=== PATIENT | female | born 1950 | race Caucasian/White ===

== ENCOUNTER 2019-02-12 18:41 | Emergency (ER) | payer MEDICARE, MEDICAID ==
[~2019-02-12] VITALS: Ht 152 cm; Wt 57.0 kg
[~2019-02-12 18:41] MED LIST: BUDE6HFA INH; CLON1TAB3 PO; DESV50TA PO; ESTR0.62 PO; FLUT16SP22 NS; MULT-1018 PO; PRISTIQ; RT-ALBUINH IH; TRAZ-144 PO
--- NOTE | 2019-02-12 19:08 | ED Integumentary General ---
General Chief Complaint: Skin/Wound Problems Stated Complaint: POST OP SITE BLEEDING - STOMACH Nursing Triage Note: DC FROM [place] TODAY AFTER HAVING A LAP SIGMOID COLON REPAIR AND LAP APPY ON SATURDAY. STATES SHE PICKED UP HER PURSE AND THINKS SHE MIGHT HAVE OPENED A STITCH DUE TO THE AREA BLEEDING WHERE A DRAIN WAS. Source: patient Exam Limitations: no limitations History of Present Illness Date Seen by Provider: Feb 12, 2019 Time Seen by Provider: 19:04 Initial Comments To ER with reports of bleeding at the right lower abdominal incision, the site of her former drain. She had laparoscopic sigmoid colon resection and appendectomy at [facility] on Saturday of this week. She was just discharged in route back to her home and [facility] when she picked up her purse and noticed a tearing sensation in the right lower abdomen at the site of the drain or it had been removed and a bit of bruising onto the gauze dressing. This concerned her so she stopped here on the way home. Timing/Duration: just prior to arrival Severity: moderate Location: torso Associated Symptoms: denies symptoms Allergies and Home Medications Allergies Coded Allergies: mirtazapine (Verified Allergy, Severe, INCREASED HEART RATE, 02/12/19) quetiapine (Verified Allergy, Severe, INCREASED HEART RATE, 02/12/19) ziprasidone (Verified Allergy, Severe, INCREASE HEART RATE, 02/12/19) aspirin (Verified Allergy, Mild, NAUSEA, 07/01/14) codeine (Verified Adverse Reaction, Unknown, NAUSEA/HALLUCINATION, 07/01/14) risperidone (Unverified Adverse Reaction, Unknown, 07/01/14) Home Medications Albuterol Sulfate 1 Puff Puff, 2 PUFF IH Q4H PRN for SHORTNESS OF BREATH, (Reported) Budesonide/Formoterol Fumarate 1 Inhaler Aero, 2 PUFF INH BID, (Reported) Clonazepam 1 Mg Tablet, 1 MG PO TID PRN for ANXIETY, (Reported) Desvenlafaxine Succinate 50 Mg Tab.sr.24h, 50 MG PO DAILY, (Reported) Estrogens Conjugated 0.625 Mg Tab, 0.625 MG PO DAILY, (Reported) Fluticasone Propionate 16 Gm Naspr, 1 SPRAY NS BID, (Reported) Multivits-Min/Folic Acid/Biot 1 Each Tablet, 1 TAB PO DAILY, (Reported) Trazodone Hcl 50 Mg Tablet, 50-100 MG PO HS, (Reported) Patient Home Medication List Home Medication List Reviewed: Yes Review of Systems Review of Systems Constitutional: see HPI EENTM: see HPI Respiratory: no symptoms reported Cardiovascular: no symptoms reported Genitourinary: no symptoms reported Musculoskeletal: see HPI Skin: see HPI Psychiatric/Neurological: No Symptoms Reported Endocrine: No Symptoms Reported Past Grxlfil-Wplomr-Byjeaz Hx Patient Social History Recent Foreign Travel: No Contact w/Someone Who Travel: No Recent Infectious Disease Expo: No Immunizations Up To Date Tetanus Booster (TDap): Less than 5yrs Date of Pneumonia Vaccine: Feb 17, 2013 Date of Influenza Vaccine: Feb 17, 2014 Seasonal Allergies Seasonal Allergies: Yes Past Medical History Adenoidectomy, Bladder Surgery, Hysterectomy, Tonsillectomy Asthma Reproductive Disorders: No Female Reproductive Disorders: Denies Sexually Transmitted Disease: No HIV/AIDS: No Irritable Bowel Anxiety, PTSD Recent Skin Changes Adverse Reaction/Blood Tranf: No Family Medical History Completed stroke G8 BROTHER (HAD A CLOT AFTER SHOULDER SURGERY, THEN HAD STROKE) FH: kidney disease 19 MOTHER ( AT 42) FH: leukemia 19 FATHER ( AT 39) Respiratory disorder G8 BROTHER (COPD) G8 BROTHER (EMPHYSEMA) Physical Exam Vital Signs Vital Signs - First Documented 02/12/19 18:43 Temp 37.0 Pulse 81 Resp 16 B/P (MAP) 176/73 (107) Pulse Ox 97 O2 Delivery Room Air Capillary Refill : Less Than 3 Seconds General Appearance: WD/WN, no apparent distress Respiratory: no respiratory distress, no accessory muscle use Gastrointestinal: normal bowel sounds, tenderness (tenderness to palpation, the small less than or equal to 1 cm incision in the right lower abdomen where the drain was at his clean and dry. I'm not able to spread to support any more than about a millimeter or 2 deep. When I press around this I'm unable to express any blood or serous fluid. There is no surrounding induration and no erythema and no ecchymosis. A new dressing was replaced and the patient was reassured.) Neurologic/Psychiatric: alert, normal mood/affect, oriented x 3 Skin: normal color, warm/dry Progress/Results/Core Measures Results/Orders Vital Signs/I&O 02/12/19 18:43 Temp 37.0 Pulse 81 Resp 16 B/P (MAP) 176/73 (107) Pulse Ox 97 O2 Delivery Room Air Blood Pressure Mean: 107 Departure Impression Primary Impression: Postoperative bleeding from incision Disposition: 01 HOME, SELF-CARE Condition: Stable Departure-Patient Inst. Decision time for Depature: 19:07 Referrals: NO,LOCAL PHYSICIAN (PCP/Family) Primary Care Physician Patient Instructions: Wound Care (DC) Add. Discharge Instructions: 1. Return to ER for any concerns All discharge instructions reviewed with patient and/or family. Voiced understanding. Images Torso/Trunk 1 - SHEILA FRIED [employer]CH[employer]Y TE[employer]ER Feb 12, 2019 19:07
[2019-02-12 19:13] VITALS: BP 176/73
[2019-02-12] MEDS ORDERED: oxyCODONE/APAP 5/325MG (PERCOCET 5) TABLET PO ONE (19:15)
== END 2019-02-12 19:20 | disposition home or self-care (01) ==
LOC: EDUNIT# 18:41 → ER 18:42
DX: L76.22 Postprocedural hemorrhage of skin and subcutaneous tissue following other procedure (principal); J45.909 Unspecified asthma, uncomplicated; F43.10 Post-traumatic stress disorder, unspecified; F41.9 Anxiety disorder, unspecified; K58.9 Irritable bowel syndrome, unspecified; Z90.710 Acquired absence of both cervix and uterus; Z90.49 Acquired absence of other specified parts of digestive tract; Z88.6 Allergy status to analgesic agent; Z88.5 Allergy status to narcotic agent; Z88.8 Allergy status to other drugs, medicaments and biological substances; Z79.51 Long term (current) use of inhaled steroids; Z90.89 Acquired absence of other organs; Z80.6 Family history of leukemia
CPT/HCPCS: 99283